=== PATIENT | female | born 1980 | race African-American/Black ===

== ENCOUNTER 2018-03-14 23:56 | Emergency (ER) | payer OTHER ==
[~2018-03-14] VITALS: Ht 180.3 cm; Wt 65.0 kg
[~2018-03-14 23:56] MED LIST: LORTA10 PO
[2018-03-15 00:27] VITALS: BP 138/65; PULSE 67; RESP 20; TEMP 98.4; O2SAT 100
[2018-03-15] MEDS ORDERED: DICL75TA PO (01:10)
[2018-03-15] MEDS ORDERED: CYCL10TA PO (01:10)
[2018-03-15] MEDS ORDERED: NAPROXEN 500 MG TAB PO ONE (01:15)
[2018-03-15] MEDS ORDERED: CYCLOBENZAPRINE HCL 10 MG TAB PO ONE (01:15)
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
== END 2018-03-15 01:29 | disposition home or self-care (01) ==
LOC: NEPD 23:56
DX: S16.1XXA Strain of muscle, fascia and tendon at neck level, initial encounter (principal); S39.012A Strain of muscle, fascia and tendon of lower back, initial encounter; K21.9 Gastro-esophageal reflux disease without esophagitis; V49.40XA Driver injured in collision with unspecified motor vehicles in traffic accident, initial encounter; Z88.2 Allergy status to sulfonamides
CPT/HCPCS: 99283